=== PATIENT | female | born 1995 | race Caucasian/White ===

== ENCOUNTER 2016-03-24 00:52 | Emergency (ER) | payer OTHER ==
--- NOTE | 2016-03-24 03:31 | ER Document Report ---
ED General - General Chief Complaint: Low Back Pain Stated Complaint: BACK PAIN Notes: Patient is 20-year-old female presents with complaints of low back pain. She felt spasming in her lumbar paraspinal musculature. She says the symptoms have now gone away. She's had no pain or numbness going to her legs. No loss of bowel control. No urinary retention. No fevers. No recent trauma. No other complaints at this time. She does have a infant which she has to molded goods spot picker and carry in a car seat. No history of IV drug abuse. No fevers. TRAVEL OUTSIDE OF THE [place] IN LAST 30 DAYS: No - Related Data Allergies/Adverse Reactions: No Known Allergies Allergy (Unverified 03/24/16 01:05) Past Medical History - Social History Smoking Status: Unknown if Ever Smoked Frequency of alcohol use: None Drug Abuse: None Family History: Reviewed & Not Pertinent Patient has suicidal ideation: No Patient has homicidal ideation: No Renal/ Medical History: Denies: Hx Peritoneal Dialysis Review of Systems - Review of Systems Notes: My Normal Review Basic REVIEW OF SYSTEMS: CONSTITUTIONAL : Denies fever, chills, or sweats. Denies recent illness. RESPIRATORY: Denies cough, cold, or chest congestion. Denies shortness of breath, difficulty breathing, or wheezing. GASTROINTESTINAL: Denies abdominal pain. Denies nausea, vomiting, or diarrhea. Denies constipation. Last BM: GENITOURINARY: Denies difficulty urinating, painful urination, burning, frequency, or blood in urine. MUSCULOSKELETAL: Back pain SKIN: Denies rash or skin lesions. NEUROLOGICAL: Denies altered mental status or loss of consciousness. Denies headache. Denies weakness or paralysis or loss of use of either side. Denies problems with gait or speech. Denies sensory or motor loss. ALL OTHER SYSTEMS REVIEWED AND NEGATIVE. Physical Exam - Notes Notes: General Appearance: Well nourished, alert, cooperative, no acute distress, no obvious discomfort. Well-appearing. Vitals: reviewed, See vital signs table. Lungs: No wheezing, No rales, No rhonci, No accessory muscle use, good air exchange bilaterally. Heart: Normal rate, Regular rythm, No murmur, no rub Back: No reproducible pain to palpation of the low back. Extremities: strength 5/5 in all extremities, good pulses in all extremities, no swelling or tenderness in the extremities, no edema. Skin: warm, dry, appropriate color, no rash Neuro: speech clear, oriented x 3, normal affect, responds appropriately to questions. Good strength in both lower extremities with plantar dorsiflexion. Patient is able to stand or walk on her toes without difficulty. Distal sensation is intact. Patellar reflexes are 2 out of 4 and equal bilaterally. Course - Transfer of Care Notes: 03/24/16 03:42 Patient is well-appearing. She's been asymptomatic now for over an hour. She looks well. I feel she is safe to be discharged home. She has no evidence of any spinal cord impingement. I will write prescription for Flexeril in case she has pain comes back. Patient does have an infant at home but does not breast-feed. Patient encouraged return to ER shows fevers, worsening pain, loss of bowel control, urinary retention, weakness or numbness in the legs. Patient agrees with plan will be discharged home. Dictation of this chart was performed using voice recognition software; therefore, there may be some unintended grammatical errors. Discharge - Discharge Clinical Impression: Low back pain Qualifiers: Chronicity: acute Back pain laterality: bilateral Sciatica presence: without sciatica Qualified Code(s): M54.5 - Low back pain Condition: Good Disposition: HOME, SELF-CARE Additional Instructions: LOW BACK PAIN: Three out of every four people will have an episode of disabling back pain during their lifetime. Most commonly the pain is due to straining of the muscles and ligaments in the low back. Usual treatment includes: (1) Rest on a firm surface. Avoid lying on your stomach. (2) Ice pack the painful area. After a few days, gentle heat may be used intermittently to relax the area, or ice packs can be continued. (3) Medication may be needed -- muscle relaxers and antiinflammatory medicines are commonly used. (4) As the back improves, exercises are prescribed to strengthen the back and abdominal muscles. Your doctor will advise you on the proper care for your back at each stage in your recovery. You may be better in a few days -- or healing may take several weeks. If new symptoms of a "herniated disc" (radiation of pain, numbness, or tingling down the back of the leg or weakness in the leg) occur, you should be re-examined. Further testing may be necessary. MUSCLE RELAXERS: (Flexeril) Muscle relaxing medications are usually prescribed for acute muscle spasm or injury to the neck and back. They are often combined with antiinflammatory pain medication for increased relief. You may stop the muscle relaxer when the pain and stiffness have improved. Start the medication again if spasms recur. Muscle relaxers may cause drowsiness, especially with the first dose. Do not operate machinery or drive while under the effects of the medication. Most muscle relaxers last up to 24 hours. Do not combine the medication with alcohol. ICE PACKS: Apply ice packs frequently against the painful area. Many different schedules are recommended, such as "20 minutes on, 20 minutes off" or "one hour ice, two hours rest." If you need to work, you may need to go longer between ice treatments. You should plan to have the area ice packed AT LEAST one fourth of the time. The ice should be applied over the wrap, tape, or splint, or over a layer of cloth -- not directly against the skin. Some ice bags have a built-in cloth and can be put directly on the skin. WARM PACKS: After approximately two days, apply gentle heat (such as a heating pad or hot water bottle) for about 20 to 30 minutes about every two hours -- at least four times daily. Warmth and elevation will help you make a more rapid recovery , and will ease the pain considerably. Do not use HOT heat, and never apply heat for longer than 30 minutes. The continuous heat can invisibly damage skin and muscles -- even when no burn is seen on the surface. Damaged muscles can make you MORE sore. FOLLOW-UP CARE: If you have been referred to a physician for follow-up care, call the physician s office for an appointment as you were instructed or within the next two days. If you experience worsening or a significant change in your symptoms, notify the physician immediately or return to the Emergency Department at any time for re-evaluation. Please return to the ER immediately if you develop leg weakness, numbness, worsening back pain, fevers, loss of bowel control, or inability to urinate. Prescriptions: Cyclobenzaprine HCl [Flexeril 5 mg Tablet] 5 mg PO TID #15 tablet Forms: Parent Work Note
[2016-03-24 04:08] VITALS: BP 110/62
== END 2016-03-24 04:08 | disposition home or self-care (01) ==
LOC: ER 00:52
DX: M54.5 Low back pain (principal)
CPT/HCPCS: 99283

== ENCOUNTER 2016-11-08 17:40 | Emergency (ER) | payer OTHER ==
[2016-11-08 17:54] VITALS: BP 125/75
[2016-11-08] MEDS ORDERED: LORATADINE 10 MG TABLET PO ONE (18:30)
[2016-11-08] MEDS ORDERED: PSEUDOEPHEDRINE HCL 30 MG TABLET PO ONE (18:30)
[2016-11-08] MEDS ORDERED: GUAIFENESIN 600 MG TABLET.SA PO ONE (18:30)
[2016-11-08] MEDS ORDERED: IBUPROFEN 800 MG TABLET PO ONE (18:30)
--- NOTE | 2016-11-08 18:36 | ER Document Report ---
ED Headache - General Chief Complaint: Headache Stated Complaint: SORE THROAT Time Seen by Provider: 11/08/16 18:20 Mode of Arrival: Ambulatory Information source: Patient Notes: 21 yo female present to ED for headache nasal congestion sore throat body aches since yesterday. She states she was nauseated earlier today from the headache. She states she took ibuprofen with little relief this morning around 10:00. She took 400 mg. TRAVEL OUTSIDE OF THE [place] IN LAST 30 DAYS: No - HPI Patient complains to provider of: Headache Patient reports: Other - Nasal congestion sore throat shortness of breath body aches Onset: Yesterday Onset was: Gradual Timing: Worse Quality of pain: Achy, Throbbing Severity: Severe Pain Level: 5 Associated symptoms: Chills, Fever, Other - Nasal congestion sore throat shortness of breath and body aches Similar symptoms previously: Yes Recently seen / treated by doctor: No - Related Data Allergies/Adverse Reactions: No Known Allergies Allergy (Verified 11/08/16 18:42) Past Medical History - General Information source: Patient - Social History Smoking Status: Never Smoker Cigarette use (# per day): No Chew tobacco use (# tins/day): No Smoking Education Provided: No Frequency of alcohol use: None Drug Abuse: None Occupation: [employer] Lives with: Family Family History: DM, Hypertension, Malignancy Patient has suicidal ideation: No Patient has homicidal ideation: No - Past Medical History Cardiac Medical History: Reports: None Pulmonary Medical History: Reports: Hx Asthma EENT Medical History: Reports: None Neurological Medical History: Reports: Hx Migraine Endocrine Medical History: Reports: None Renal/ Medical History: Reports: None Malignancy Medical History: Reports: None GI Medical History: Reports: None Musculoskeltal Medical History: Reports None Skin Medical History: Reports None Psychiatric Medical History: Reports: None Traumatic Medical History: Reports: None Infectious Medical History: Reports: None Surgical Hx: Negative Past Surgical History: Reports: None - Immunizations Immunizations up to date: Yes Hx Diphtheria, Pertussis, Tetanus Vaccination: Yes Review of Systems - Review of Systems Constitutional: Chills, Fever, Recent illness EENT: Ear pain, Nose pain, Nose congestion, Nose discharge, Throat pain Cardiovascular: No symptoms reported Respiratory: Cough Gastrointestinal: No symptoms reported Genitourinary: No symptoms reported Female Genitourinary: No symptoms reported Musculoskeletal: No symptoms reported Skin: No symptoms reported Hematologic/Lymphatic: No symptoms reported Neurological/Psychological: Headaches -: Yes All other systems reviewed and negative Physical Exam - Vital signs Vitals: Temp Pulse Resp BP Pulse Ox 99.2 F 116 H 20 125/75 99 11/08/16 17:50 11/08/16 17:50 11/08/16 17:50 11/08/16 17:50 11/08/16 17:50 Interpretation: Normal, Tachycardic - 108 - General General appearance: Appears well, Alert - HEENT Head: Normocephalic, Atraumatic Eyes: Normal Pupils: PERRL Visual frank normal: Yes Ears: Normal External canal: Normal Tympanic membrane: Normal Sinus: Normal Nasal: Purulent discharge, Swelling Mouth/Lips: Normal Mucous membranes: Normal Pharynx: Erythema, Post nasal drainage Neck: Normal - Respiratory Respiratory status: No respiratory distress Chest status: Nontender Breath sounds: Nonproductive cough Chest palpation: Normal - Cardiovascular Rhythm: Regular Heart sounds: Normal auscultation Murmur: No - Abdominal Inspection: Normal Distension: No distension Bowel sounds: Normal Tenderness: Nontender Organomegaly: No organomegaly - Back Back: Normal, Nontender - Extremities General upper extremity: Normal inspection, Nontender, Normal color, Normal ROM , Normal temperature General lower extremity: Normal inspection, Nontender, Normal color, Normal ROM , Normal temperature, Normal weight bearing. No: Ritchie's sign - Neurological Neuro grossly intact: Yes Cognition: Normal Orientation: AAOx4 Brigantine Coma Scale Eye Opening: Spontaneous Sandra Coma Scale Verbal: Oriented Brigantine Coma Scale Motor: Obeys Commands Brigantine Coma Scale Total: 15 Speech: Normal Cranial nerves: Normal Cerebellar coordination: Normal Motor strength normal: LUE, RUE, LLE, RLE Additional motor exam normals: Equal litigation legal secretary Babinski reflex: Normal (flexor plantar) Sensory: Normal Biceps - Reflex grade: 2 = Normal Triceps - Reflex grade: 2 = Normal Brachioradialis - Reflex grade: 2 = Normal Knee - Reflex grade: 2 = Normal Ankle - Reflex grade: 2 = Normal - Psychological Associated symptoms: Normal affect, Normal mood - Skin Skin Temperature: Warm Skin Moisture: Dry Skin Color: Normal Course - Re-evaluation Re-evalutation: 11/08/16 22:17 Patient symptoms consistent with upper respiratory infection. Patient was instructed to use Tylenol or Motrin, Claritin, Mucinex, and Sudafed as needed for her symptoms and to follow-up with her primary doctor. - Vital Signs Vital signs: Temp Pulse Resp BP Pulse Ox 99.2 F 116 H 20 125/75 99 11/08/16 17:50 11/08/16 17:50 11/08/16 17:50 11/08/16 17:50 11/08/16 17:50 Discharge - Discharge Clinical Impression: URI (upper respiratory infection) Qualifiers: URI type: unspecified URI Qualified Code(s): J06.9 - Acute upper respiratory infection, unspecified Condition: Stable Disposition: HOME, SELF-CARE Instructions: Family Physicians / Practices Additional Instructions: UPPER RESPIRATORY ILLNESS: You have a viral infection of the respiratory passages -- a "cold." This common infection causes nasal congestion, drainage, and often sore throat and cough. It is highly contagious. The disease usually lasts about 10 to 14 days. There is no "cure" for the viral infection -- it must run its course. If there is a complication, such as bacterial infection in the nose, sinuses, middle ear, or bronchial tubes, antibiotics may be required. The antibiotics won't affect the virus. Drink plenty of fluids. A humidifier may help. An expectorant medication or decongestant may make you more comfortable. Use acetaminophen or ibuprofen for fever or aches. See the doctor if fever persists over two days, if there is any significant worsening of your symptoms, or if you simply fail to improve as expected. HEADACHE: The physician does not feel that the headache you are experiencing has a serious underlying cause. Most headaches are due to emotional stress, with resultant muscle tension (tension headache). Occasionally, headaches are secondary to changes in the blood vessels of the scalp (vascular headache and migraine headache). Sometimes, a headache is the first symptom of another developing illness, such as a viral infection. You have no evidence of stroke, bleeding, meningitis, or other serious cause of your headache. The treatment of headaches varies with the severity and cause of the pain. Not all headaches need pain shots. In fact, there is evidence that using narcotics for headaches may make them worse in the long run. The physician will determine the therapy that's in your best interest. If you develop a fever, if the headache is different from any you've previously experienced, or if the headache progressively worsens, then call your physician at once or go to the emergency room. DECONGESTANT MEDICATION: A decongestant medicine has been suggested. Often this medicine is combined in the same tablet with an antihistamine or expectorant. This type of medicine is helpful in treating a bad cold or sinus condition, as well as in treatment of the nasal congestion of hay fever. It is not of much benefit for lung infections. Decongestant medicines are related to stimulants. They can cause an increase in blood pressure and heart rate. Persons with heart disease and high blood pressure should not take decongestants without discussing this with the physician. If you develop palpitations, chest pain, headache, or tremors, stop the medicine and consult your physician. Antihistamines An antihistamine has been prescribed to control your symptoms. Antihistamines are used for many reasons, including itching, watering eyes, runny nose, allergic swelling, hives, and insect stings. Antihistamines may cause drowsiness, especially with the first dose. Do not operate machinery or drive while under the effects of the medication. Other common side effects include dry mouth and eyes. In older persons, antihistamines can occasionally cause urinary retention, constipation, and trouble focusing the eyes. Do not combine the medication with alcohol, or with any other medication without talking to your doctor. COUGH-SUPPRESSANT & EXPECTORANT MEDICATION: You are to use a cough medication as needed for relief of symptoms. This medicine is a combination of an expectorant (to make the mucous thinner and more easily "coughed up") and a cough suppressant (to reduce the frequency of coughing). The cough-suppressant medicine is related to narcotics. You may experience mild nausea and sleepiness. Some patients who are very sensitive to narcotics may have stomach pain from this medicine. Taking the medicine with food reduces these side effects. Do not drive or work with machinery until you know how this medicine affects you. The expectorant should have no side effects. Iodine-containing expectorants (such as organidin) should not be taken by persons with active thyroid disease unless approved by your doctor. Call the doctor if you develop shortness of breath, hives, rash, itching, lightheadedness, or severe nausea and vomiting. Ibuprofen Ibuprofen is an excellent, safe drug for pain control. In addition, it has potent antiinflammatory effects which are beneficial, especially in the treatment of injuries, arthritis, or tendonitis. It's best to take ibuprofen with food. Persons with ulcer disease or allergy to aspirin should notify their physician of this before taking ibuprofen. Take the medication exactly as prescribed. Don't take additional doses unless instructed to do so by your doctor. If you develop wheezing, shortness of breath, hives, faintness, stomach pain, vomiting, or dark black stools, return for re-evaluation at once. USE OF ACETAMINOPHEN (Tylenol): Acetaminophen may be taken for pain relief or fever control. It's much safer than aspirin, offering a wider range of "safe" dosages. It is safe during . Some brand names are Tylenol, Panadol, Datril, Anacin 3, Tempra, and Liquiprin. Acetaminophen can be repeated every four hours. The following are maximum recommended dosages: >89 pounds or adults 650 mg to 900 mg Acetaminophen can be repeated every four hours. Maximum dose not to exceed 4000 mg a day. FOLLOW-UP CARE: If you have been referred to a physician for follow-up care, call the physician s office for an appointment as you were instructed or within the next two days. If you experience worsening or a significant change in your symptoms, notify the physician immediately or return to the Emergency Department at any time for re-evaluation. Forms: Return to Work
== END 2016-11-08 19:22 | disposition home or self-care (01) ==
LOC: ER 17:40
DX: J02.9 Acute pharyngitis, unspecified (principal); R09.81 Nasal congestion; R51 Headache; R50.9 Fever, unspecified; J45.909 Unspecified asthma, uncomplicated; R06.02 Shortness of breath; H92.03 Otalgia, bilateral; J34.89 Other specified disorders of nose and nasal sinuses
CPT/HCPCS: 99283

== ENCOUNTER 2018-01-10 05:16 | Inpatient (IN) | payer OTHER ==
[2018-01-10] MEDS ORDERED: RINGERS SOLUTION,LACTATED 1,000 ML IV PRN ×2 (05:22→08:04)
[2018-01-10 05:58] LABS: ABSOLUTE BASOPHILS # (AUTO) 0.1 10^3/uL (0.0-0.2); ABSOLUTE EOSINOPHILS # (AUTO) 0.8 10^3/uL (0.0-0.6); ABSOLUTE MONOCYTES (AUTO) 0.5 10^3/uL (0.1-1.4); BASOPHILS % (AUTO) 0.6 % (0-2); EOSINOPHILS % (AUTO) 8.2 % (0-6); HEMATOCRIT 32.2 % (36.0-47.0); HEMOGLOBIN 10.7 g/dL (12.0-15.5); LYMPHOCYTES % (AUTO) 21.4 % (13-45); MEAN CORPUSCULAR HEMOGLOBIN 25.5 pg (27.0-33.4); MEAN CORPUSCULAR HGB CONC 33.1 g/dL (32.0-36.0); MEAN CORPUSCULAR VOLUME 77 fl (80-97); MONOCYTES % (AUTO) 4.9 % (3-13); PLATELET COUNT 196 10^3/uL (150-450); RED BLOOD COUNT 4.19 10^6/uL (3.72-5.28); RED CELL DISTRIBUTION WIDTH 16.9 % (11.5-14.0); SEGMENTED NEUTROPHILS % (AUTO) 64.9 % (42-78); TOTAL CELLS COUNTED % (AUTO) 100 %; WHITE BLOOD COUNT 9.3 10^3/uL (4.0-10.5)
[2018-01-10 06:11] LABS: APPEARANCE,URINE CLOUDY; BILIRUBIN,URINE NEGATIVE (NEGATIVE); COLOR,URINE YELLOW; GLUCOSE, URINE NEGATIVE (NEGATIVE); KETONES,URINE NEGATIVE (NEGATIVE); LEUKOCYTE ESTERASE,URINE NEGATIVE (NEGATIVE); NITRITE,URINE NEGATIVE (NEGATIVE); PROTEIN,URINE NEGATIVE (NEGATIVE); UROBILINOGEN,URINE NEGATIVE mg/dL (<2.0)
[2018-01-10 06:54] LABS: URINE AMPHETAMINES SCREEN NEGATIVE; URINE BARBITURATES SCREEN NEGATIVE; URINE BENZODIAZEPINES SCREEN NEGATIVE; URINE COCAINE SCREEN NEGATIVE; URINE MARIJUANA (THC) SCREEN NEGATIVE; URINE METHADONE SCREEN NEGATIVE; URINE PHENCYCLIDINE SCREEN NEGATIVE
[2018-01-10] MEDS ORDERED: OXYTOCIN/NORMAL SALINE 20 UNIT/1,000 ML RTUINJ ONE ×2 (07:23→11:32)
[2018-01-10] MEDS ORDERED: RINGERS SOLUTION,LACTATED 300 ML IV ONE (08:04)
[2018-01-10] MEDS ORDERED: OXYTOCIN/NORMAL SALINE 20 UNIT/1,000 ML RTUINJ IV PRN ×2 (08:04→15:02)
[2018-01-10] MEDS ORDERED: MISOPROSTOL 0.2 MG TABLET ONE (11:31)
[2018-01-10] MEDS ORDERED: EPHEDRINE SULFATE INJ 50 MG/1 ML AMPULE ONE (11:32)
[2018-01-10] MEDS ORDERED: FENTANYL/BUPIVACAINE/NS/PF 300 MCG/150 ML RTUINJ EPI ONE (11:32)
[2018-01-10] MEDS ORDERED: BUPIVACAINE HCL 0.5 % INJ/PF 30 ML SDV ONE (11:32)
[2018-01-10] MEDS ORDERED: LIDOCAINE 1% INJ-PF (10 MG/ML) 30 ML SDV ONE (11:32)
--- NOTE | 2018-01-10 12:15 | Admission Physical ---
Datetime Report Generated by CPN: 01/10/2018 12:15 CURRENT ADMISSION Chief Complaint: Scheduled Induction of Labor Indication for Induction: Post Dates Admit Impression : Term, Intrauterine ; No Active Labor Admit Plan: Admit to Unit; Initiate Labor Induction Protocol ALLERGIES Medication Allergies: No Medication Allergies: No Known Allergies (01/10/2018) Latex: No Latex Allergies OBSTETRICAL HISTORY EDC: 01/02/2018 00:00 : 3 Para: 1 Term: 1 : 0 SAB: 0 IAB: 0 Livin Gestational Diabetes: No Rh Sensitization: No Incompetent Cervix: No KULDEEP: No Infertility: No ART Treatment: No Uterine Anomaly: No IUGR: No Hx Previous C/S: No Macrosomia: No Hx Loss/Stillborn: No PIH: No Hx : No Placenta Previa/Abruption: No Depression/PP Depression: No PTL/PROM: No Post Hemorrhage: No Obstetrical History Comments: G1: SAB @ 8 weeks 2014 G2: 10/2015 39.6 6 lbs 5 oz F G3: current 6-7 week lapse in care SEE RECORDS Alcohol: No Marijuana : No Cocaine: No Other Illicit Drugs: No Cigarettes: Never Smoker. [id number] MEDICAL HISTORY Diabetes: No Blood Transfusion: No Pulmonary Disease (Asthma, TB): Yes Breast Disease: No Hypertension: No Contingents Supervisor Surgery: No Heart Disease: No Hosp/Surgery: Yes Autoimmune Disorder: No Anesthetic Complications: No Kidney Disease: No Abnormal Pap Smear: No Neuro/Epilepsy: No Psychiatric Disorders: No Other Medical Diseases: No Hepatitis/Liver Disease: No Significant Family History: No Varicosities/Phlebitis: No Trauma/Violence : No Thyroid Dysfunction: No Medical History Comments: childbirth x 1 INFECTIOUS HISTORY Gonorrhea: No Genital Herpes: No Chlamydia: No Tuberculosis: No Syphilis: No Hepatitis: No HIV/AIDS Exposure: No Rash or Viral Illness: No HPV: No PHYSICAL EXAM General: Normal HEENT: Normal Neurologic: Normal Thyroid: Deferred Heart: Normal Lungs: Normal Breast: Deferred Back: Normal Abdomen: Normal Genitourinary Exam: Normal Extremities: Normal DTRs: Deferred Pelvic Type: Not Done Vital Signs: Reviewed; Within Normal Limits VAGINAL EXAM Dilatation: 4 Effacement: 70 Station: BALL Contraction Comments: Q2-3 MINS MEMBRANES Membranes: Intact FETUS A EGA: 41.1 FHR- Baseline: 120 Variability: Moderate 6-25bpm Accelerations: 15X15 Estimated Weight (gm): 3300 Presentation: Vertex Admit Comment: AT 41 WEEKS ADMITTED FOR IOL. P:CONTINUE PITOCIN IOL, EPIDURAL UPON REQUEST, ANTICIPATE PLANS FOR LABOR AND DELIVERY Pain Management: Epidural Feeding Preference: Formula Circumcision: Yes INFORMED CONSENT Assignment: Aziza Bennett MD Signature: with User ID: Patsy : with User ID: [email or web address]
[2018-01-10] MEDS ORDERED: DIPHENHYDRAMINE HCL 50 MG/ML VIAL IV PRN (14:20)
[2018-01-10] MEDS ORDERED: MEPERIDINE HCL/PF INJ 25 MG/1 ML DISP.SYRIN IV PRN (14:20)
[2018-01-10] MEDS ORDERED: MORPHINE SULFATE 10 MG/ML INJ IV PRN (14:20)
[2018-01-10] MEDS ORDERED: PROMETHAZINE HCL INJ 25 MG/1 ML VIAL IV PRN ×2 (14:20→15:02)
[2018-01-10] MEDS ORDERED: FENTANYL CITRATE INJ/PF 100 MCG/2 ML AMPUL IV PRN ×3 (14:20)
[2018-01-10] MEDS ORDERED: PROMETHAZINE HCL 25 MG TABLET PO PRN (15:02)
[2018-01-10] MEDS ORDERED: MISOPROSTOL 0.2 MG TABLET PR PRN (15:02)
[2018-01-10] MEDS ORDERED: NA PHOS,M-B/NA PHOS,DI-BA (ADULT) 133 ML ENEMA PR PRN (15:02)
[2018-01-10] MEDS ORDERED: ACETAMINOPHEN 650 MG SUPP.RECT PR PRN (15:02)
[2018-01-10] MEDS ORDERED: MAGNESIUM HYDROXIDE SUSP 30 ML UDCUP PO PRN (15:02)
[2018-01-10] MEDS ORDERED: DIPH/PERTUSS(ACELL)/TETANUS VAC/PF 0.5 ML SYR (>=10YO) IM PRN (15:02)
[2018-01-10] MEDS ORDERED: MEASLES,MUMPS&RUBELLA VACC/PF 0.5 ML VIAL SUBCUT PRN (15:02)
[2018-01-10] MEDS ORDERED: ZOLPIDEM TARTRATE 5 MG TABLET PO PRN (15:02)
[2018-01-10] MEDS ORDERED: PSEUDOEPHEDRINE HCL 30 MG TABLET PO PRN (15:02)
[2018-01-10] MEDS ORDERED: DIBUCAINE 1% OINTMENT 28 GM TP PRN (15:02)
[2018-01-10] MEDS ORDERED: DIPHENHYDRAMINE HCL 25 MG CAPSULE PO PRN (15:02)
[2018-01-10] MEDS ORDERED: ACETAMINOPHEN WITH CODEINE #3 TABLET PO PRN ×2 (15:02)
[2018-01-10] MEDS ORDERED: BENZOCAINE/MENTHOL AEROSOL SPRAY 56 ML TOP PRN (15:02)
[2018-01-10] MEDS ORDERED: PROMETHAZINE HCL 25 MG SUPP.RECT PR PRN (15:02)
[2018-01-10] MEDS ORDERED: GLYCERIN/WITCH HAZEL LEAF 1 EACH MED..PAD TP PRN (15:02)
--- NOTE | 2018-01-10 15:56 | Warning Signs in Babies ---
VOD Warning Signs Datetime Report Generated by [facility]: 01/10/2018 15:56 VOD#608 -Warning Signs in Babies: Needs to be viewed. (01/10/2018 03:58:Sara Sawyer RN)
--- NOTE | 2018-01-10 16:31 | Delivery Summary ---
Del Sum A-C Datetime Report Generated by CPN: 01/10/2018 16:31 DELIVERY PERSONNEL DELIVERY PERSONNEL: [id number] Delivery Doctor:: Alexia Bourgeois CNM Labor and Delivery Nurse:: Sara Meyer RN Nursery Nurse:: Carlos Enrique Dixon RN Gauger Delivery/CHURCH SECRETARY: Sue Palencia CHURCH SECRETARY II MATERNAL INFORMATION Delivery Anesthesia: Epidural Medications After Delivery: Pitocin Drip 20 Units/1000ml NSS; Cytotec 1000mcg Per Rectum/Vagina Maternal Complications: None Provider Comments: EDNA WITH RIGHT NUCHAL ARM. CORD DOUBLE CLAMPED AND CUT. SPONTANEOUS PLACENTA WITH 3VC. 2ND DEGREE LACERATION REPAIRED. CYTOTEC 1000MCG MD GIVEN FOR LIGHT CONTINUED BLEEDING. MOTHER AND STABLE IN L_D #3 LABOR SUMMARY EDC: 01/02/2018 00:00 No. Babies in Womb: 1 Labor Anesthesia: Epidural LABOR INFORMATION Reason for Induction: Post Dates Onset of Labor: 01/10/2018 11:27 Complete Dilatation: 01/10/2018 13:50 Oxytocin: Induction Group B Beta Strep: negative Antibiotics # of Doses: 0 Steroids Given: None Reason Steroids Not Administered: Not Applicable MEMBRANES Membranes Rupture Method: Spontaneous Rupture of Membranes: 01/10/2018 12:40 Length of Rupture (hr): 1.25 Amniotic Fluid Color: Clear Amniotic Fluid Amount: Small Amniotic Fluid Odor: Normal STAGES OF LABOR Stage 1 hr: 2 Stage 1 min: 23 Stage 2 hr: 0 Stage 2 min: 5 Stage 3 hr: 0 Stage 3 min: 11 Total Time in Labor hr: 2 Total Time in Labor min: 39 VAGINAL DELIVERY Laceration #1: Perineal Laceration Extension #1: Second Degree Laceration Repair Note: repaired under epidural anesthesia BABY A INFORMATION Infant Delivery Date/Time: 01/10/2018 13:55 Method of Delivery: Vaginal Born in Route : No : N/A Forceps: N/A Vacuum Extraction: N/A Shoulder Dystocia : No PRESENTATION/POSITION BABY A Presentation: Cephalic Cephalic Presentation: Vertex Vertex Position: Left Occipital Anterior Breech Presentation: N/A PLACENTA INFORMATION BABY A Placenta Delivery Time : 01/10/2018 14:06 Placenta Method of Delivery: Spontaneous Placenta Status: Delivered SCORES BABY A Heart Rate 1 min: >100 bpm Resp Effort 1 min: Good Cry Reflex Irritability 1 min: Cough or Sneeze or Pulls Away Muscle Tone 1 min: Active Motion Color 1 min: Blue/Pale Resuscitation Effort 1 min: N/A SCORE 1 MIN: 8 Heart Rate 5 min: >100 bpm Resp Effort 5 min: Good Cry Reflex Irritability 5 min: Cough or Sneeze or Pulls Away Muscle Tone 5 min: Active Motion Color 5 min: Blue/Pale Resuscitation Effort 5 min: N/A SCORE 5 MIN: 8 INFORMATION BABY A Gestational Age at Delivery: 41.1 Gestational Status: Late Term- 41- 41.6 Weeks Infant Outcome : Liveborn Infant Condition : Stable Infant Sex: Male IDENTIFICATION BABY A Infant Verification Date/Time: 01/10/2018 14:15 ID Band Number: [id number] Mother's Name Verified: Yes RN Verifying : Nabeel Meyer RN/ S. Brown, RN WEIGHT/LENGTH BABY A Infant Birthweight (gm): 3200 Infant Weight (lb): 7 Infant Weight (oz): 1 Infant Length (in): 20.50 Length (cm): 52.07 CORD INFORMATION BABY A No. Cord Vessels: 3 Nuchal Cord : N/A Cord Blood Taken: Yes-For Storage (Mom's Blood type +) Suction: Mouth; Nose ASSESSMENT BABY A Infant Complications: None Physical Findings at Delivery: Within Normal Limits Respirations: Appears Normal Skin to Skin: Yes Skin to Skin Time (min): 60 Cigarette Catcher/ALS Called : No Care By: Pradip Dixon RN Transferred To: Remains with Mother SIGNATURES Assignment: Aziza Bennett MD Signature: with User ID: [email or web address] : with User ID: [email or web address] : I was personally available for consultation and serving as supervising physician for the MLP.
[2018-01-10] MEDS: DOCUSATE SODIUM 100 MG CAPSULE PO SCH (17:17)
[2018-01-10] MEDS: FERROUS SULFATE 325 MG TABLET PO SCH (17:17)
[2018-01-10] MEDS: IBUPROFEN 800 MG TABLET PO SCH (21:14)
[2018-01-10] MEDS: FAMOTIDINE 20 MG TABLET PO SCH (21:14)
[2018-01-11] MEDS: IBUPROFEN 800 MG TABLET PO SCH ×3 (05:24→21:10)
[2018-01-11 06:39] LABS: HEMATOCRIT 29.5 % (36.0-47.0); HEMOGLOBIN 9.7 g/dL (12.0-15.5); MEAN CORPUSCULAR HEMOGLOBIN 25.3 pg (27.0-33.4); MEAN CORPUSCULAR HGB CONC 32.8 g/dL (32.0-36.0); MEAN CORPUSCULAR VOLUME 77 fl (80-97); PLATELET COUNT 167 10^3/uL (150-450); RED BLOOD COUNT 3.83 10^6/uL (3.72-5.28); RED CELL DISTRIBUTION WIDTH 16.7 % (11.5-14.0); WHITE BLOOD COUNT 11.2 10^3/uL (4.0-10.5)
[2018-01-11] MEDS: DOCUSATE SODIUM 100 MG CAPSULE PO SCH ×3 (09:53→17:44)
[2018-01-11] MEDS: FAMOTIDINE 20 MG TABLET PO SCH ×3 (09:53→21:10)
[2018-01-11] MEDS: FERROUS SULFATE 325 MG TABLET PO SCH ×3 (09:54→17:44)
[2018-01-11] MEDS: PRENATAL VITAMIN W DHA CAPSULE PO SCH ×2 (09:54→12:01)
[2018-01-11] MEDS: SENNOSIDES/DOCUSATE 8.6-50 MG 1 EACH TABLET PO SCH ×2 (09:54→12:02)
--- NOTE | 2018-01-11 17:18 | PDOC PROGRESS REPORT ---
Subjective-OB Progress Note for:: 01/11/18 Subjective: 22yo G2 now P2 s/p ppd1. Pt ambulating and voiding without difficulty. Denies any concerns at this time. Physical Exam (OB) Vital Signs: Temp Pulse Resp BP Pulse Ox 97.6 F 80 15 111/88 H 99 01/11/18 15:32 01/11/18 15:32 01/11/18 15:32 01/11/18 15:32 01/11/18 15:32 Intake & Output 01/10/18 01/11/18 01/12/18 06:59 06:59 06:59 Intake Total 850 Output Total 240 Balance -240 850 Weight 85.6 kg - General General Appearance: Appears well In distress: None - PIH/Pre-Eclampsia Clonus: Negative Headache: Absent Epigastric Pain: No Visual Changes: No - Episiotomy/Laceration Site Condition: Well Approximated - Lochia Lochia Amount: Small 10-25 ml Lochia Color: Rubra/Red - Abdomen Description: Soft, Round Hernia Present: No Fundal Description: Firm, Midline Fundal Height: u/u - u/2 - Respiratory Respiratory Status: No respiratory distress - Extremities Upper extremity: Normal inspection Lower extremities: Normal inspection - Psychological Associated symptoms: Normal affect, Normal mood Objective-Diagnostic Laboratory: 01/11/18 06:19 01/11/18 06:19 WBC 11.2 H RBC 3.83 Hgb 9.7 L Hct 29.5 L MCV 77 L MCH 25.3 L MCHC 32.8 RDW 16.7 H Plt Count 167 Assessment and Plan(PN) - Assessment and Plan (1) Anemia complicating , third trimester Is this a current diagnosis for this admission?: Yes Plan: increase dietary iron and fes04 BID (2) Perineal laceration during delivery, delivered Is this a current diagnosis for this admission?: Yes Plan: monitor for s/s of infection. (3) Normal vaginal delivery Is this a current diagnosis for this admission?: Yes Plan: routine pp care. - Time Spent with Patient Time with patient: Less than 15 minutes Medications reviewed and adjusted accordingly: Yes - Disposition Anticipated Discharge: Home Within: within 24 hours
[2018-01-12] MEDS: IBUPROFEN 800 MG TABLET PO SCH (05:36)
[2018-01-12] MEDS: PRENATAL VITAMIN W DHA CAPSULE PO SCH (09:41)
[2018-01-12] MEDS: DOCUSATE SODIUM 100 MG CAPSULE PO SCH (09:41)
[2018-01-12] MEDS: FERROUS SULFATE 325 MG TABLET PO SCH (09:41)
[2018-01-12] MEDS: SENNOSIDES/DOCUSATE 8.6-50 MG 1 EACH TABLET PO SCH (09:41)
[2018-01-12] MEDS: FAMOTIDINE 20 MG TABLET PO SCH (09:41)
--- NOTE | 2018-01-12 09:58 | PDOC DISCHARGE SUMMARY ---
Final Diagnosis Discharge Date: 01/12/18 - Final Diagnosis (1) Normal vaginal delivery Is this a current diagnosis for this admission?: Yes (2) Perineal laceration during delivery, delivered Is this a current diagnosis for this admission?: Yes Discharge Data - Discharge Medication Prescriptions: Ibuprofen [Motrin 800 mg Tablet] 800 mg PO Q8HP PRN #60 tablet PRN Reason: Home Medications: Vit,Calc76/Iron/Folic [Pnv 29-1 Tablet] 1 tab PO DAILY 01/10/18 Ferrous Sulfate [Feosol 325 mg Tablet] 325 mg PO BID tablet 01/12/18 Ibuprofen [Motrin 800 mg Tablet] 800 mg PO Q8HP PRN #60 tablet 01/12/18 Procedures: NST Intrapartum Procedure(s): Spontaneous Vaginal Delivery Complication(s): Laceration-Perineal Laceration-Degree: 2nd - Diagnosis Test Laboratory: Temp Pulse Resp BP Pulse Ox 98.0 F 91 16 115/73 100 01/12/18 07:55 01/12/18 07:55 01/12/18 07:55 01/12/18 07:55 01/12/18 08:40 01/10/18 01/10/18 01/11/18 05:30 05:32 06:19 RBC 4.19 3.83 Hgb 10.7 L 9.7 L Hct 32.2 L 29.5 L Urine Opiates Screen NEGATIVE - Discharge information/Instructions Discharge Activity: Balance Activity w/Rest, Pelvic Rest Discharge Diet: Regular Disposition: HOME, SELF-CARE Follow up with: [facility] in: 4, Weeks
[2018-01-12 11:23] VITALS: BP 115/68
== END 2018-01-12 13:39 | disposition home or self-care (01) | DRG 807 ==
LOC: LR 05:16 → 2S 16:50
PROVIDERS: ADMIT Student in an Organized Health Care Education/Training Program; ATTEND Student in an Organized Health Care Education/Training Program
PROC: 10E0XZZ Delivery of Products of Conception, External Approach (ICD-10-PCS; principal; 2018-01-10)
PROC: 0KQM0ZZ Repair Perineum Muscle, Open Approach (ICD-10-PCS; 2018-01-10)
PROC: 4A1HXCZ Monitoring of Products of Conception, Cardiac Rate, External Approach (ICD-10-PCS; 2018-01-10)
DX: O48.0 Post-term pregnancy (principal); O70.1 Second degree perineal laceration during delivery; O99.02 Anemia complicating childbirth; D64.9 Anemia, unspecified; O69.81X0 Labor and delivery complicated by cord around neck, without compression, not applicable or unspecified; Z3A.41 41 weeks gestation of pregnancy; Z37.0 Single live birth
CPT/HCPCS: 36415; 80307; 81005; 85025; 85027; 86592; 86850; 86900; 86901; 94760; J2590; J3010; J3490

== ENCOUNTER 2019-02-09 21:34 | Emergency (ER) | payer OTHER ==
--- NOTE | 2019-02-09 22:38 | ER Document Report ---
ED Fall - General Chief Complaint: Fall Stated Complaint: FALL Time Seen by Provider: 02/09/19 22:16 Primary Care Provider: JUWAN BARKER MD [Primary Care Provider] - Follow up as needed Mode of Arrival: Ambulatory Notes: Ms. Garland is a 23 yo F approximately 29 weeks presenting to the ED after a fall. Patient states she works at [employer] and slipped and fell on her right side, landing somewhat on her right forearm and elbow as well as on her abdomen. Patient denies any head trauma or LOC. This occurred around 9 PM this evening. She denies any vaginal bleeding, vaginal discharge or significant abdominal pain. She states that she had been told by her OB that should she fall, she needed to be evaluated in the ED to make sure that the baby is okay. Patient states that she does not often feel the baby move and is unsure whether he is moved much since 9 PM if at all. She denies any pain, shortness of breath, nausea, vomiting or diarrhea. She denies any presyncopal symptoms and states she primarily slipped when she was going around a corner at work. TRAVEL OUTSIDE OF THE [place] IN LAST 30 DAYS: No - Related data Allergies/Adverse Reactions: No Known Allergies Allergy (Verified 01/10/18 05:37) Past Medical History - Social History Smoking Status: Unknown if Ever Smoked Family History: DM, Hypertension, Malignancy Patient has suicidal ideation: No Patient has homicidal ideation: No Pulmonary Medical History: Reports: Hx Asthma Neurological Medical History: Reports: Hx Migraine Renal/ Medical History: Denies: Hx Peritoneal Dialysis - Immunizations Immunizations up to date: Yes Hx Diphtheria, Pertussis, Tetanus Vaccination: Yes Review of Systems - Review of Systems Constitutional: See HPI EENT: No symptoms reported Cardiovascular: No symptoms reported Respiratory: No symptoms reported Gastrointestinal: No symptoms reported Genitourinary: No symptoms reported Female Genitourinary: No symptoms reported Musculoskeletal: No symptoms reported Skin: No symptoms reported Hematologic/Lymphatic: No symptoms reported Neurological/Psychological: No symptoms reported Physical Exam - Vital signs Vitals: Temp Pulse Resp BP Pulse Ox 98.1 F 107 H 17 106/57 L 97 02/09/19 21:54 02/09/19 21:54 02/09/19 21:54 02/09/19 21:54 12/05/19 21:54 Interpretation: Tachycardic - General General appearance: Appears well, Alert - HEENT Head: Normocephalic, Atraumatic Eyes: Normal Pupils: PERRL - Respiratory Respiratory status: No respiratory distress Chest status: Nontender Breath sounds: Normal Chest palpation: Normal - Cardiovascular Rhythm: Regular Heart sounds: Normal auscultation Murmur: No - Abdominal Inspection: Normal Distension: No distension Bowel sounds: Normal Tenderness: Nontender, Other - Gravid abdomen palpable approximately 7 to 8 cm above the umbilicus. No focal abnormalities. Organomegaly: No organomegaly - Back Back: Normal, Nontender - Extremities General upper extremity: Normal inspection, Nontender, Normal color, Normal ROM, Normal temperature General lower extremity: Normal inspection, Nontender, Normal color, Normal ROM, Normal temperature, Normal weight bearing. No: Ritchie's sign - Neurological Neuro grossly intact: Yes Cognition: Normal Orientation: AAOx4 Sandra Coma Scale Eye Opening: Spontaneous Sandra Coma Scale Verbal: Oriented Clayton Coma Scale Motor: Obeys Commands Clayton Coma Scale Total: 15 Speech: Normal Motor strength normal: LUE, RUE, LLE, RLE Sensory: Normal - Psychological Associated symptoms: Normal affect, Normal mood - Skin Skin Temperature: Warm Skin Moisture: Dry Skin Color: Normal Course - Re-evaluation Re-evalutation: Patient is generally well-appearing and nontoxic. Initial vitals notable for tachycardia. Differential diagnosis includes contusion, placental abruption (l ess likely), subchorionic hemorrhage, normal . Patient ordered for transabdominal ultrasound. She has no acute complaints at this point in time or pain. Given the lack of vaginal bleeding or vaginal complaints, no indication for further bloodwork. Further chart dissection shows that the patient's previous blood type is a positive therefore Rh incompatibility 02/10/19 01:01 Bedside ultrasound shows evidence live intrauterine . No placental abruption or chorionic hemorrhage. Patient baby has normal pelvic ultrasound. Patient given return precautions directed to use Tylenol as needed for pain control. Patient instructed to follow-up with her OB as needed. - Vital Signs Vital signs: Temp Pulse Resp BP Pulse Ox 98.1 F 107 H 17 106/57 L 97 02/09/19 21:54 02/09/19 21:54 02/09/19 21:54 02/09/19 21:54 02/09/19 21:54 Discharge - Discharge Clinical Impression: Normal in third trimester, Fall Condition: Good Disposition: HOME, SELF-CARE Instructions: Injuries in Additional Instructions: If you notice signs of vaginal bleeding, abdominal pain, or any other concerning symptoms, please return to the ED for further evaluation. Otherwise you can follow-up with your OB physician as scheduled. Use Tylenol as needed for pain control. Referrals: JUWAN BARKER MD [Primary Care Provider] - Follow up as needed
--- NOTE | 2019-02-10 00:27 | RADIOLOGY REPORT (SQ) ---
EXAM DESCRIPTION: US FOLLOW UP COMPLETED DATE/TME: 02/09/2019 22:30 CLINICAL HISTORY: 23 years, Female, fall, 29 wk preg COMPARISON: None. TECHNIQUE: Transabdominal pelvic ultrasound with grayscale and color images. LIMITATIONS: None. FINDINGS: The maternal cervix is closed and measures approximately 3.9 cm in length. A single live intrauterine is identified with the heart rate measuring 152 bpm. The placenta is anterior. No evidence of placenta previa or abruption. The CAMI is normal and measures 12.6 cm. Biometry: BPD: 7.11 cm = 28 weeks 4 days. HC: 26.42 cm = 28 weeks 5 days. AC: 22.43 cm = 26 weeks 6 days. FL: 5.14 cm = 27 weeks 3 days. Ratios (%): FL/AC: 22.9 (20-24). FL/BPD: 72.3 (71-87). HC/AC: 1.18 (0.99-1.21). CI: 75.7 (70-86). EFW = 1063 grams. 23%ile by Hadlock. (Please note that an incorrect LMP could make the percentile value inaccurate.) Clinical: LMP: 07/18/2018. MA: 29 weeks three days. SASCHA: 04/24/2019. Ultrasound: MA: 27 weeks six days. SASCHA: 05/05/2019. IMPRESSION: Single live intrauterine , as described above copyright 2010 [employer]- All Rights Reserved
[2019-02-10 01:21] VITALS: BP 120/66
== END 2019-02-10 01:21 | disposition home or self-care (01) ==
LOC: ER 21:34
DX: Z04.2 Encounter for examination and observation following work accident (principal); O26.893 Other specified pregnancy related conditions, third trimester; R00.0 Tachycardia, unspecified; O99.513 Diseases of the respiratory system complicating pregnancy, third trimester; J45.909 Unspecified asthma, uncomplicated; Z3A.29 29 weeks gestation of pregnancy
CPT/HCPCS: 76805; 99284